=== PATIENT | male | born 1990 | race Caucasian/White ===

== ENCOUNTER 2023-12-26 22:35 | Emergency (ER) | payer BC, SELFPAY ==
[2023-12-26 22:36] VITALS: BP 157/88; PULSE 82; RESP 16; TEMP 36.7; O2SAT 100; BMI 38.0
[2023-12-26 22:44] VITALS: BMI 38.0
--- NOTE | 2023-12-26 22:48 | XR_ITS ---
PROCEDURE INFORMATION: Exam: XR Left Knee Exam date and time: 12/26/2023 11:05 PM Age: 33 years old Clinical indication: Pain; Knee; Left; Additional info: L knee pain TECHNIQUE: Imaging protocol: Radiologic exam of the left knee. Views: 3 views. COMPARISON: No relevant prior studies available. 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 Minimal tricompartmental degenerative joint disease. No acute fracture or dislocation. Soft tissues: Normal. IMPRESSION: 1. No acute findings. 2. 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
--- NOTE | 2023-12-26 22:58 | ED_ITS ---
Discharge Plan Disposition Patient Disposition: Home, Self-Care Prescriptions Prescriptions: New methocarbamol 500 mg tablet 100 mg PO Q6H PRN (Reason: pain) Qty: 30 0RF lidocaine 5 % adhesive patch,medicated 1 patch topical DAILY PRN (Reason: pain) Qty: 30 0RF Rx Instructions: leave on most painful area for up to 12 hrs Referrals Follow up/Referrals: Jone Zimmerman DO [Staff Physician] - See instructions Provider,Referral, [Primary Care Provider] - See instructions Activity Restrictions/Add. Instructions Additional Instructions/Restrictions: Please follow-up with your primary care provider. Please return to the emergency department if you develop any new or worsening symptoms or become concerned for your health. Please call to follow-up with Dr. Zimmerman for further assessment of your knee injury. Please take Tylenol and ibuprofen as needed for pain. Please use ice or heat if it helps. Please use lidocaine patches and Robaxin as needed for pain. Clinical Impressions Clinical Impression: Left knee sprain Discharge ED Provider: Cachorro Epperson General Adult HPI <Kathleen Burton MD - Last Filed: 12/26/23 23:01> General Chief complaint: Extremity Injury, Lower Stated complaint: LT knee pain Time Seen by Provider: 12/26/23 22:54 Mode of Arrival: Ambulatory Source of Information: Patient Limitations: No Limitations Description of Symptoms (Recalled from ER Triage Doc. by RN): pt states was playing ring around the [employer] with daughter and fell and felt a pop in lt knee. pt c/o lt knee pain History of Present Illness HPI narrative: Patient is a 33-year-old male presenting today with a left knee injury. He was playing ring around the [employer] with his daughter and he felt a pop in his left knee this happened yesterday. States it was quite swollen when this first happened felt unstable since that time and he has pain along the lateral joint line of the left knee. Has been taking some ibuprofen without any significant improvement denies any other medical problems or other injuries. Related Data Previous Rx's Medication Instructions Recorded lidocaine 5 % topical patch 1 patch topical DAILY PRN pain #30 12/26/23 ea methocarbamol 500 mg tablet 100 mg (0.2 x 500 mg) PO Q6H PRN 12/26/23 pain #30 tabs Allergies Allergy/AdvReac Type Severity Reaction Status Date / Time No Known Allergies Allergy Verified 12/26/23 22:48 [facility] <Kathleen Burton MD - Last Filed: 12/26/23 23:01> [facility] Disclaimer: The information contained in this section may have been updated after the patient was seen, as this information can be updated by other users. Social History (Updated 12/26/23 @ 23:01 by Kathleen Burton MD) Smoking Status: Never smoker alcohol intake: never current occupational status: other Travel in the last 8 weeks: None <Kathleen Burton MD - Last Filed: 12/26/23 23:01> ROS Obtained: Yes All systems reviewed & no additional complaints except as documented Physical Exam <Kathleen Burton MD - Last Filed: 12/26/23 23:01> General General appearance: alert Respiratory Respiratory exam: Present normal lung sounds bilaterally Cardiovascular Cardiovascular exam: Present regular rate Extremities Exam Extremities exam: Present other (Left lower extremity he has tenderness over the lateral aspect of the joint line of the left knee no significant effusion anterior and posterior drawer are normal lateral and medial stress are normal) Neurological Exam Neurological exam: Present alert Medical Decision Making <Kathleen Burton MD - Last Filed: 12/26/23 23:01> [place] Inquiry Pt receiving controlled substance: No Vital Signs: 12/26/23 22:36 Temperature 98.0 F Temperature Source Oral Pulse Rate [Right] 82 Respiratory Rate 16 Blood Pressure [Right Arm] 157/88 H Blood Pressure Mean [Right Arm] 111 02 Sat by Pulse Oximetry 100 Orders (Tests/Meds): ORDERS Category Date Time Status Knee XR left 3 views [XR knee LT 3V] Stat Exams 12/26/23 22:48 Completed Medical Decision Narrative: Patient is a 33-year-old male presenting today with a twisting injury to the left knee that had some swelling yesterday objectively no effusion right now. Has lateral joint space tenderness which could be from a meniscal injury lateral collateral ligament injury etc. He did describe some swelling and some instability from historical standpoint it is possible he has an underlying ACL etc. injury. Unlikely that you have a fracture or dislocation but will get plain films and refer him to orthopedic surgery for evaluation of possible MRI. <Cachorro Epperson MD - Last Filed: 12/26/23 23:56> Vital Signs: 12/26/23 22:36 Temperature 98.0 F Temperature Source Oral Pulse Rate [Right] 82 Respiratory Rate 16 Blood Pressure [Right Arm] 157/88 H Blood Pressure Mean [Right Arm] 111 02 Sat by Pulse Oximetry 100 Orders (Tests/Meds): ORDERS Category Date Time Status Knee XR left 3 views [XR knee LT 3V] Stat Exams 12/26/23 22:48 Completed Medical Decision Narrative: Patient is a 33-year-old male presenting today with a twisting injury to the left knee that had some swelling yesterday objectively no effusion right now. Has lateral joint space tenderness which could be from a meniscal injury lateral collateral ligament injury etc. He did describe some swelling and some instability from historical standpoint it is possible he has an underlying ACL etc. injury. Unlikely that you have a fracture or dislocation but will get plain films and refer him to orthopedic surgery for evaluation of possible MRI. Zeenat SANTIAGO: I assumed care of the patient at the time of handoff from the prior provider. On reassessment patient remains hemodynamically stable. Radiographs show no evidence of fracture dislocation or large effusion. No instability noted on exam. Patient able to ambulate but with pain. Patient was discharged with prescription for lidocaine patch and Robaxin for pain control. He was given Dr. Zimmerman's referral information and [facility] Patient discharged in stable condition. Critical Care <Kathleen Burton MD - Last Filed: 12/26/23 23:01> Critical Care Time Critical Care Time: No
--- NOTE | 2023-12-26 23:29 | PC.NURSE ---
ROUNDED ON PATIENT, NO NEEDS AT THIS TIME
[2023-12-27 00:03] VITALS: BP 136/77; PULSE 70; RESP 16; TEMP 36.7; O2SAT 99
== END 2023-12-27 00:06 | disposition home or self-care (01) ==
PROVIDERS: Emergency Provider Emergency Medicine
DX: M25.562 Pain in left knee (principal); S83.92XA Sprain of unspecified site of left knee, initial encounter; X50.0XXA Overexertion from strenuous movement or load, initial encounter
CPT/HCPCS: 73562; 99283